=== PATIENT | male | born 1965 | race Caucasian/White ===

== ENCOUNTER 2021-01-17 06:17 | Inpatient (IN) ==
--- NOTE | 2021-01-02 11:53 | PAT Medication Instructions ---
Medication Instructions Date of Service January 02, 2021 Home Medications albuterol sulfate 1 - 2 inh INHALATION QID PRN atorvastatin 20 mg PO PM bumetanide [Bumex] 1 mg PO QAM fluticasone propion-salmeterol 1 inh INHALATION BID losartan 100 mg PO HS metoprolol succinate 25 mg PO BID potassium chloride 20 meq PO QAM tadalafil [Cialis] 20 mg PO DAILY PRN tamsulosin [Flomax] 0.4 mg PO BID temazepam 30 mg PO HS PRN DO NOT take the morning of surgery bumetanide [Bumex] 1 mg PO QAM potassium chloride 20 meq PO QAM tadalafil [Cialis] 20 mg PO DAILY PRN Take morning of surgery With a small sip of water, OTHERWISE NOTHING TO EAT OR DRINK AFTER MIDNIGHT: albuterol sulfate 1 - 2 inh INHALATION QID PRN (use if needed; please bring rescue inhaler with you to hospital day of surgery if possible) fluticasone propion-salmeterol 1 inh INHALATION BID metoprolol succinate 25 mg PO BID tamsulosin [Flomax] 0.4 mg PO BID Take evening before surgery albuterol sulfate 1 - 2 inh INHALATION QID PRN (if needed) atorvastatin 20 mg PO PM fluticasone propion-salmeterol 1 inh INHALATION BID losartan 100 mg PO HS metoprolol succinate 25 mg PO BID tadalafil [Cialis] 20 mg PO DAILY PRN (if needed) tamsulosin [Flomax] 0.4 mg PO BID temazepam 30 mg PO HS PRN (if needed) Other Notes If you have any questions please call us at [phone] or [phone] or [phone] or [phone]
--- NOTE | 2021-01-03 11:25 | Anesthesiology Consultation ---
Date of Service January 03, 2021 Assessment & Plan (1) Encounter for pre-operative examination: COVID screening: Per assessment on 01/03: Travel screen negative, no known COVID- 19 positive contacts or current COVID-19 related symptoms (scheduled 01/10). Surgeon arranging preop COVID testing. Awaiting results. Chart Review Chart Review: Acceptable Risk for Surgery and Patient seen in Pre Admission Testing Teaching & Discussion Pre-Anesthesia Teaching/Discussion Notes: Instructed NPO after midnight before surgery,except medications with 15 cc of water. Medication instructions prov ided according to the PAT guidelines. History Surgery Operation Date: 01/17/21 11:05 Proposed Procedures p C3-C5 Anterior Cervical Discectomy and Fusion, Spinal Cord Monitoring - Gr navi Pacheco DO Height/Weight Height: 6 ft Weight: 109.4 kg Allergies Allergy/AdvReac Type Severity Reaction Status Date / Time morphine AdvReac Intermediate Hypotension Verified 01/03/21 11:24 (? overmedication related) Medications Home Medications Medication Instructions Recorded Confirmed Last Taken albuterol sulfate 1 - 2 inh INHALATION QID PRN 01/02/21 01/02/21 Unknown atorvastatin 20 mg PO PM 01/02/21 01/02/21 Unknown bumetanide [Bumex] 1 mg PO QAM 01/02/21 01/02/21 Unknown fluticasone propion-salmeterol 1 inh INHALATION BID 01/02/21 01/02/21 Unknown losartan 100 mg PO HS 01/02/21 01/02/21 Unknown metoprolol succinate 25 mg PO BID 01/02/21 01/02/21 Unknown potassium chloride 20 meq PO QAM 01/02/21 01/02/21 Unknown tadalafil [Cialis] 20 mg PO DAILY PRN 01/02/21 01/02/21 Unknown tamsulosin [Flomax] 0.4 mg PO BID 01/02/21 01/02/21 Unknown temazepam 30 mg PO HS PRN 01/02/21 01/02/21 Unknown Past Medical History Medical History Arthritis Asthma BPH (benign prostatic hyperplasia) Degenerative disc disease History of diverticulitis Hyperlipidemia Hypertension Spinal stenosis Exercise / Class Metabolic Activity II 4-5 Yardwork/Stairs/Walk up hill Past Family History Family History Other No family history of adverse response to anesthesia Past Surgical History Surgical History Fusion of spine Lumbar x3 History of appendectomy History of colon resection r/t diverticulitis History of colonoscopy History of esophagogastroduodenoscopy (EGD) History of herniorrhaphy Multiple History of tonsillectomy and adenoidectomy History of tooth extraction History of total shoulder replacement R/L S/P total hip resurfacing Left Past Anesthesia History No Hx of Anesthesia Complications and No Family Hx of Anesthesia Complications History of PONV No Hx of PONV and No Hx of Motion Sickness STOP BANG Total 4 Social History Smoking Status: Former smoker tobacco type: cigarettes and smokeless tobacco Do You Dip or Chew Tobacco: Yes (Rare "pouches" > advised none AM DOS) Smoking End Date: Quit 20 years ago Hx Alcohol Use: Yes Alcohol type: beer alcohol intake frequency: a few times a month ("social drinker") Hx Substance Use: No substance use type: does not use Physical Exam Vital Signs VITALS BP 116/74 P 80 TEMP 98.5 SP02 94%RA RESP 18 PHYSICAL Significantly decreased extension range of motion. Full TMJ range of motion. TMD 3.5 finger breaths Mallampati Score 1 Dentition: lower left side missing, one crown Lungs: clear throughout to auscultation Cardiac: regular rate and rhythm, no murmurs noted Spine: normal Carotid arteries: negative bruit Extremities: no edema Testing Laboratory Results 01/03/21 12:02 01/03/21 12:37 PT 10.5 Seconds (9.0-12.0) 01/03/21 12:02 INR 1.0 (0.9-1.1) 01/03/21 12:02 APTT 25.0 Seconds (21.0-31.0) 01/03/21 12:02 Urine Color Yellow 01/03/21 12:37 Urine Appearance Clear (Clear) 01/03/21 12:37 Urine pH 6.0 (4.5-7.5) 01/03/21 12:37 Ur Specific [place] 1.006 (1.000-1.030) 01/03/21 12:37 Urine Protein Negative (Negative) 01/03/21 12:37 Urine Glucose (UA) Negative (Negative) 01/03/21 12:37 Urine Ketones Negative (Negative) 01/03/21 12:37 Urine Nitrite Negative (Negative) 01/03/21 12:37 Ur Leukocyte Esterase Negative (Negative) 01/03/21 12:37 Blood Type O Positive 01/03/21 12:02 Antibody Screen NEGATIVE 01/03/21 12:02 Electrocardiogram Date: 01/03/21 Findings: + NSR @ (78) Chest X-Ray Date: 01/03/21 FINDINGS: Lung volumes are normal. Lungs are clear. There is no pneumothorax or pleural effusion. Cardiac size is normal. Mediastinal contours are normal. There is no evidence for pulmonary edema. Bilateral shoulder arthroplasties are partially imaged. Mild elevation/eventration of the left hemidiaphragm is unchanged. Lumbar spine fusion hardware is partially imaged. IMPRESSION: No acute cardiopulmonary findings.
--- NOTE | 2021-01-03 13:01 | XRay Report ---
XR chest Pre-admission PA/Lat CLINICAL HISTORY: Preoperative evaluation. COMPARISON STUDY: Chest radiograph January 02, 2014. FINDINGS: Lung volumes are normal. Lungs are clear. There is no pneumothorax or pleural effusion. Car diac size is normal. Mediastinal contours are normal. There is no evidence for pulmonary edema. Bilat eral shoulder arthroplasties are partially imaged. Mild elevation/eventration of the left hemidiaphra gm is unchanged. Lumbar spine fusion hardware is partially imaged. IMPRESSION: No acute cardiopulmonary findings. ACT 112: Negative or not required by law. Electronically signed by: Lev Oliva M.D. 01/03/2021 12:59 PM
[2021-01-03 13:05] LABS: Appearance Urine Clear (Clear); Bilirubin Urine Negative (Negative); Blood Urine Negative (Negative); Color Urine Yellow; Glucose Urine UA Negative (Negative); Ketones Urine Negative (Negative); Leukocyte Esterase Urine Negative (Negative); Nitrite Urine Negative (Negative); Protein Urine Negative (Negative); Specific Gravity Urine 1.006 (1.000-1.030); Urobilinogen Urine Negative (Negative)
[2021-01-03 13:05] LABS: Basophils # (auto) 0.03 K/uL (0-0.2); Basophils % (auto) 0.4 %; Eosinophils # (auto) 0.03 K/uL (0-0.5); Eosinophils % (auto) 0.4 %; Hematocrit (blood only) 43.8 % (42-52); Hemoglobin 15.1 g/dL (14.0-18.0); Immature Granulocytes # (auto) 0.01 K/uL (0.00-0.02); Immature Granulocytes % (auto) 0.1 %; Lymphocytes # (auto) 1.84 K/uL (1.2-3.4); Lymphocytes % (auto) 25.2 %; Mean Corpuscular Hemoglobin 29.5 pg (25-34); Mean Corpuscular Hgb Conc 34.5 g/dL (32-36); Mean Corpuscular Volume 85.5 fL (80-100); Mean Platelet Volume 9.7 fL (7.4-10.4); Monocytes # (auto) 0.66 K/uL (0.11-0.59); Neutrophils # (auto) 4.74 K/uL (1.4-6.5); Neutrophils % (auto) 64.9 %; Platelet Count 220 K/uL (130-400); RDW Coefficient of Variation 14.1 % (11.5-14.5); Red Blood Count 5.12 M/uL (4.7-6.1); White Blood Count 7.31 K/uL (4.8-10.8)
[2021-01-03 13:18] LABS: BUN Creatinine Ratio 19.2 (10-20); Calcium 8.8 mg/dl (8.5-10.1); Creatinine Clr Calc Pharmacy 109.8 ml/min; Potassium 3.8 mmol/L (3.5-5.1)
[2021-01-03 13:21] LABS: Prothrombin Time 10.5 Seconds (9.0-12.0)
--- NOTE | 2021-01-03 16:02 | Electrocardiogram Report ---
Test Reason : Blood Pressure : / mmHG Vent. Rate : 078 BPM Atrial Rate : 078 BPM P-R Int : 150 ms QRS Dur : 092 ms QT Int : 354 ms P-R-T Axes : 081 072 073 degrees QTc Int : 403 ms Normal sinus rhythm Normal ECG When compared with ECG of 02-JAN-2014 15:10, No significant change was found Confirmed by Nir Garcia ([id number]) on 01/03/2021 4:01:48 PM Referred By: Kike Pacheco Confirmed By:Nir Garcia
[~2021-01-17 06:17] MED LIST: ACETAMINOPHEN 500 MG TAB PO SCH; CeleBREX 200 MG CAP PO SCH; GABAPENTIN 600 MG DOSE PO SCH; LR 15ML/HR IV SCH; SODIUM CHLORIDE 0.9% 250 ML IV PRN; ceFAZolin 2000MG 2,000 MG/15 ML SYR IV SCH
[2021-01-17] MEDS ORDERED: fentaNYL citrate 100 MCG/2 ML VIAL ONE (06:57)
[2021-01-17] MEDS ORDERED: MIDAZOLAM HCL 1 MG/ML 2ML VIAL ONE (06:57)
[2021-01-17] MEDS ORDERED: BACITRACIN INJ 50,000 UNIT VIAL ONE (07:01)
[2021-01-17] MEDS ORDERED: PROPOFOL IV EMULSION 10 MG/ML 100 ML VIAL IV ONE (07:16)
[2021-01-17] MEDS ORDERED: ONDANSETRON INJ 2 MG/ML 2 ML VIAL IV PRN ×2 (07:31→11:33)
[2021-01-17] MEDS ORDERED: ATROPINE SULFATE 0.1 MG/ML 10ML SYR IV PRN (07:31)
[2021-01-17] MEDS ORDERED: METOCLOPRAMIDE HCL INJ 5 MG/ML 2 ML VIAL IV PRN ×2 (07:31→11:33)
[2021-01-17] MEDS ORDERED: ePHEDrine sulfate 50 MG/ML AMP IV PRN (07:31)
[2021-01-17] MEDS ORDERED: PROMETHAZINE HCL 12.5 MG in SODIUM CHLORIDE 0.9% 50 ML IV PRN ×2 (07:31→11:33)
[2021-01-17] MEDS ORDERED: HYDROmorphone INJ 2 MG/ML SYR/VIAL IV PRN (07:31)
--- NOTE | 2021-01-17 07:32 | History & Physical Bridge Note ---
Date of Service January 17, 2021 History & Physical Bridge Note I have examined the patient, reviewed the History & Physical and in the interval since the performance of the History & Physical I have noted the following changes of clinical significance: no changes noted
--- NOTE | 2021-01-17 07:33 | History & Physical Report ---
Date of Service January 17, 2021 Assessment & Plan (1) Herniation of cervical intervertebral disc with radiculopathy: Admission and Anticipated Discharge Date Admission Date: C3-C5 anterior cervical discectomy and fusion History of Present Illness Chief Complaint: Neck and bilateral arm pain Primary Care Provider: Tyrese Sheth This is a 55-year-old male presents with chronic persistent neck and arm pain after failing extensive course of nonoperative care is here for surgical invention. Allergies Allergy/AdvReac Type Severity Reaction Status Date / Time morphine AdvReac Intermediate Hypotension Verified 01/17/21 06:37 (? overmedication related) Home Medications Medication Instructions Recorded Confirmed Type albuterol sulfate 1 - 2 inh INHALATION QID PRN 01/02/21 01/17/21 History atorvastatin 20 mg PO PM 01/02/21 01/17/21 History bumetanide [Bumex] 1 mg PO QAM 01/02/21 01/17/21 History fluticasone propion-salmeterol 1 inh INHALATION BID 01/02/21 01/17/21 History losartan 100 mg PO HS 01/02/21 01/17/21 History metoprolol succinate 25 mg PO BID 01/02/21 01/17/21 History potassium chloride 20 meq PO QAM 01/02/21 01/17/21 History tadalafil [Cialis] 20 mg PO DAILY PRN 01/02/21 01/17/21 History tamsulosin [Flomax] 0.4 mg PO BID 01/02/21 01/17/21 History temazepam 30 mg PO HS PRN 01/02/21 01/17/21 History Past Med/Surg History Medical History Arthritis Asthma BPH (benign prostatic hyperplasia) Degenerative disc disease History of diverticulitis Hyperlipidemia Hypertension Spinal stenosis Surgical History Fusion of spine Lumbar x3 History of appendectomy History of colon resection r/t diverticulitis History of colonoscopy History of esophagogastroduodenoscopy (EGD) History of herniorrhaphy Multiple History of tonsillectomy and adenoidectomy History of tooth extraction History of total shoulder replacement R/L S/P total hip resurfacing Left Family History Other No family history of adverse response to anesthesia Social History Smoking Status: Former smoker Smoking End Date: Quit 20 years ago; Second Hand Exposure: Yes (IN THE PAST); Do You Dip or Chew Tobacco: Yes (Rare "pouches" > advised none AM DOS); Tobacco Cessation Education Requested by Patient: No Hx Alcohol Use: Yes Alcohol type: beer Hx Substance Use: No Preferred Language: Beninese Data Miner Required: No Beliefs That Will Affect Care: None Current Living Situation: Spouse Feels Safe at Home: Yes Safety Concerns: Feels Safe At This Time Assistive Devices: Glasses Physical Exam Physical Exam: Patient is alert and oriented Heart regular in rhythm Lungs clear to auscultation Results & Data ([facility]) Vital Signs (Past 12 Hours) Vital Signs Temp Pulse Resp BP Pulse Ox 01/17/21 06:35 36.6 C 62 18 112/78 96
[2021-01-17] MEDS ORDERED: HYDROmorphone INJ 2 MG/ML SYR/VIAL ONE (08:08)
[2021-01-17] MEDS ORDERED: FLOSEAL HEMOSTATIC MATRIX 10ML TOP ONE (08:11)
[2021-01-17] MEDS ORDERED: LARYING-O-JET KIT (LTA) ONE (08:15)
[2021-01-17] MEDS ORDERED: GLYCOPYRROLATE 0.2 MG/ML VIAL ONE (08:15)
[2021-01-17] MEDS ORDERED: DEXAMETHASONE SOD INJ 4 MG/ML VIAL ONE (08:15)
[2021-01-17] MEDS ORDERED: NEOSTIGMINE METHYLSULFATE 1 MG/ML 10ML VIAL ONE (08:15)
[2021-01-17] MEDS ORDERED: LIDOCAINE HCL 2% 2 ML VIAL/AMP(20MG/ML) INFIL ONE (08:15)
[2021-01-17] MEDS ORDERED: ROCURONIUM BROMIDE 10 MG/ML 5 ML VIAL IV ONE (08:15)
[2021-01-17] MEDS ORDERED: PROPOFOL IV EMULSION 10 MG/ML 20 ML VIAL IV ONE (08:15)
[2021-01-17] MEDS ORDERED: PHENYLEPHRINE 100MCG/ML 5ML SYR ONE (08:15)
[2021-01-17] MEDS ORDERED: ONDANSETRON INJ 2 MG/ML 2 ML VIAL ONE (08:15)
[2021-01-17] MEDS ORDERED: ePHEDrine sulfate 50 MG/ML SYR ONE (08:15)
--- NOTE | 2021-01-17 09:22 | Operative Report ---
Post Operative Report Pre & Post Diagnosis Operation Date: 01/17/21 07:45 Pre-Op Diagnosis: Spinal Stenosis, Cervical Region Post-Op Diagnosis: Spinal Stenosis, Cervical Region I identified the patient and participated in the time-out.: Yes Procedure Operation Date: 01/17/21 07:45 Actual Procedures #1 anterior cervical discectomy with bilateral foraminotomies C3-4 C4-C5. #2 intracervical arthrodesis see 3 C4 C4-C5. #3 placement 8 mm spiral filled with I factor at C3-C4 and 7 mm Spira filled with I factor at C4-C5. #4 application of ayoub plate and screws from C3-C5. Surgeon Kike Pacheco, [employer] Certified Internetwork Expert Mary Franz Estimated Blood Loss 10 Findings Consistent with Post-Op Diagnosis Specimens None Indications This is a 55-year-old male presents above-mentioned diagnosis after failing since course of nonoperative care is here for surgical invention. Description of Procedure Patient was met with identified informed consent obtained. Patient was then taken to the operative suite underwent a patient placed in spine position [place] table head [place] butcher head. All bony prominences well-padded eyes inspected to ensure no external pressure placed upon the bed at this point the anterior cervical spine was prepped and draped in a sterile fashion. With the assistance of fluoroscopy identified the C4 vertebral body and a transverse incision was placed along the right anterior aspect of the cervical spine overlying this region. Sharp dissection with assistance of bipolar electrocautery performed down to and exposing the anterior cervical spine from C3-C5. Self-retaining retractors placed. Informed complete discectomy of C3-C4 out to the uncovertebral joints bilaterally. This included removal of all posterior annular fibers disc herniation within the canal and bilateral foraminotomies performed. Endplates were then burred to subcortical bleeding bone and an 8 mm spiral cage filled with I factor tapped in position. I did use [place] distracting pins they were removed and I proceeded to the C4-C5 level. Again complete discectomy performed out to the uncovertebral joints bilaterally. [place] distracting pins utilized. Again removed all posterior annular fibers longitudinal ligament bilateral foraminotomies performed. Endplates were then b urred to subcortical being bone and a 7 mm spiral cage filled with I factor tapped in position. Distracting apparatus was removed. All anterior osteophytes burred to a smooth cortical surface and a 5 complete screws applied with the assistance of fluoroscopy. The incision was then copiously irrigated explored to ensure no damage to surrounding structures remaining bleeding. 10 round MARILYNN drain inserted. The incision was then closed with 2 Vicryl in a fashion of 4 Monocryl for final skin closure. Steri-Strip sterile dressings placed. Patient will continue PACU stable condition. Please note spinal cord monitoring was utilized that the procedure no changes noted. Lastly Mary Franz was present at the entire surgeon involved the patient positioning complex portions of the surgery and final skin closure. I attest to the content of the Intraoperative Record and any orders documented therein. Any exceptions are noted below.
[2021-01-17] MEDS: fentaNYL citrate 100 MCG/2 ML VIAL IV PRN ×4 (09:42→09:57)
--- NOTE | 2021-01-17 10:05 | Fluoroscopy Report ---
FL cervical 2-3V CLINICAL HISTORY: ACDF C3-C5 COMPARISON STUDY: None. FLUOROSCOPY TIME: 7 seconds. FINDINGS: 2 fluoroscopic spot images of the cervical spine demonstrate C3-C5 ACDF. The hardware appea rs intact. IMPRESSION: Fluoroscopy provided for C3-C5 ACDF. ACT 112: Negative or not required by law. Electronically signed by: Raghavendra Miranda M.D. 01/17/2021 10:03 AM
[2021-01-17] MEDS ORDERED: traMADol HCL 50 MG TABLET PO PRN (11:33)
[2021-01-17] MEDS ORDERED: ALUMINUM/MAGNESIUM SUSP 30 ML UDC PO PRN (11:33)
[2021-01-17] MEDS ORDERED: TEMAZEPAM 15 MG CAPSULE PO PRN (11:33)
[2021-01-17] MEDS ORDERED: DO NOT ADMINISTER PNEUMOCOCCAL VACCINE PRN (11:33)
[2021-01-17] MEDS ORDERED: hydrOXYzine HCl 25 MG TAB PO PRN (11:33)
[2021-01-17] MEDS ORDERED: SOD PHOSPHATE/SOD BIPHOSPHATE ENEMA 132 ML BTL PR PRN (11:33)
[2021-01-17] MEDS ORDERED: ACETAMINOPHEN 500 MG TAB PO PRN (11:33)
[2021-01-17] MEDS ORDERED: RACEPINEPHRINE 2.25% NEBU SOLN 0.5 ML VIAL INH PRN (11:33)
[2021-01-17] MEDS ORDERED: dexAMETHasone 8 MG in SYRINGE 0 ML IV PRN (11:33)
[2021-01-17] MEDS ORDERED: ACETAMINOPHEN 1,000 MG/100 ML VIAL IV PRN (11:33)
[2021-01-17] MEDS ORDERED: NALOXONE HCL 0.4 MG/1 ML VIAL/CARP IV PRN (11:33)
[2021-01-17] MEDS ORDERED: HYDROmorphone INJ 1 MG/ML SYRINGE IV PRN (11:33)
[2021-01-17] MEDS ORDERED: MAGNESIUM HYDROXIDE SUSP 30 ML UDC PO PRN (11:33)
[2021-01-17] MEDS ORDERED: FAMOTIDINE 20 MG TAB PO PRN (11:33)
[2021-01-17] MEDS ORDERED: HYDROmorphone INJ 0.5 MG/0.5 ML SYR IV PRN (11:33)
[2021-01-17] MEDS ORDERED: DO NOT ADMINISTER FLU VACCINE PRN (11:33)
[2021-01-17] MEDS ORDERED: LORazepam 0.5 MG TAB PO PRN (11:33)
[2021-01-17] MEDS ORDERED: diphenhydrAMINE Capsule 25 MG CAP PO PRN (11:33)
[2021-01-17] MEDS ORDERED: ONDANSETRON 4 MG OD TAB PO PRN (11:33)
[2021-01-17] MEDS ORDERED: LACTATED RINGER'S 1,000 ML IV SCH (11:33)
[2021-01-17] MEDS ORDERED: LORazepam 0.5 MG/1 ML VIAL IV PRN (11:33)
--- NOTE | 2021-01-17 11:42 | Anesthesiology Progress Note ---
Date of Service January 17, 2021 Anesthesia Post Procedure Vital Signs Vital Signs: Temp Pulse Resp BP BP Pulse Ox 01/17/21 11:15 59 L 16 96/61 L 97 01/17/21 11:05 58 L 16 93/59 L 97 01/17/21 10:55 36.5 C 55 L 16 110/64 97 01/17/21 10:45 53 L 16 94/85 L 97 01/17/21 10:35 44 L 16 92/66 L 97 01/17/21 10:24 56 L 16 102/59 L 95 01/17/21 10:15 53 L 16 97/59 L 98 01/17/21 10:05 67 16 104/61 99 01/17/21 09:55 59 L 16 98/60 L 99 01/17/21 09:45 67 16 92/55 L 100 01/17/21 09:35 60 16 98/73 L 100 01/17/21 09:29 36.1 C L 57 L 16 98/61 L 99 01/17/21 06:35 36.6 C 62 18 112/78 96 Pain Intensity Neck: Pain Intensity: 8 Transfer of Care Handoff Completed per policy Notes Mental Status: alert / awake / arousable and participated in evaluation Patient Amnestic to Procedure: Yes Nausea / Vomiting: adequately controlled Pain: adequately controlled Airway Patency, RR, SpO2: stable & adequate BP & HR: stable & adequate Hydration State: stable & adequate Anesthetic Complications: no major complications apparent
[2021-01-17] MEDS: oxyCODONE HCL IR 5 MG TAB (IMMEDIATE RELEASE) PO PRN ×3 (12:12→20:37)
--- NOTE | 2021-01-17 13:55 | Hospitalist Consultation ---
Date of Consultation January 17, 2021 Assessment & Plan (1) Herniation of cervical intervertebral disc with radiculopathy: S/p ACDF of C3-4 & C4-C5 on 01/17/[address] Pacheco. - Post-operative care per primary team - Patient NOT wearing his cervical collar on my interview, but says he was told he can keep it off while resting in bed. - Post-op VTE ppx per primary team (2) Hypertension: BP presently 105/65 after surgery. - Will restart home losartan, metoprolol tomorrow - Will restart home Bumex tomorrow as well. He reports he gets LE edema without it, but does not think he's ever been diagnosed with heart failure. (3) Asthma: No present shortness of breath or cough. - Continue home maintenance inhaler (or hospital formulary equivalent) - DuoNebs PRN (4) Hyperlipidemia: - Continue home atorvastatin (5) BPH (benign prostatic hyperplasia): No LUTS at present. - Continue home tamsulosin BID (6) Insomnia: Takes benzo PRN at home (few times a week per patient). No hx of confusion or other issues at home. However, very sensibly, he does not want to mix opioids and benzos in the hospital. - Hold home temazepam - Melatonin HS PRN (7) DVT prophylaxis: SCDs - Low DVT risk per admission calculator & also holding heparin after spinal surgery History of Present Illness Attending Physician: Kike Pacheco, DO History of Present Illness 55yo M w/ hx of asthma, HTN, and HLD who presents as a routine consult after an ACDF of C3-4 & C4-C5 on 01/17/[address] Pacheco. Patient has had intractable cervical pain and neurologic symptoms from his cervical disease and has failed an extensive course of non-operative treatment. At the present time (after surgery), he is doing well and has minimal pain. He reports he has no shortness of breath at present, has no chest pain, and overall has no major symptoms. He does get swelling in his lower extremities if he does not take his Bumex, but does not know if he's ever been diagnosed with heart failure. Allergies Allergy/AdvReac Type Severity Reaction Status Date / Time morphine AdvReac Intermediate Hypotension Verified 01/17/21 06:37 (? overmedication related) Home Medications Medication Instructions Recorded Confirmed Type albuterol sulfate 1 - 2 inh INHALATION QID PRN 01/02/21 01/17/21 History atorvastatin 20 mg PO PM 01/02/21 01/17/21 History bumetanide [Bumex] 1 mg PO QAM 01/02/21 01/17/21 History fluticasone propion-salmeterol 1 inh INHALATION BID 01/02/21 01/17/21 History losartan 100 mg PO HS 01/02/21 01/17/21 History metoprolol succinate 25 mg PO BID 01/02/21 01/17/21 History potassium chloride 20 meq PO QAM 01/02/21 01/17/21 History tadalafil [Cialis] 20 mg PO DAILY PRN 01/02/21 01/17/21 History tamsulosin [Flomax] 0.4 mg PO BID 01/02/21 01/17/21 History temazepam 30 mg PO HS PRN 01/02/21 01/17/21 History oxycodone 5 mg PO Q6H PRN #20 tab 01/17/21 Rx tramadol 50 mg PO Q6H PRN #20 tab 01/17/21 Rx Patient History Medical History Arthritis Asthma BPH (benign prostatic hyperplasia) Degenerative disc disease History of diverticulitis Hyperlipidemia Hypertension Spinal stenosis Surgical History Fusion of spine Lumbar x3 History of appendectomy History of colon resection r/t diverticulitis History of colonoscopy History of esophagogastroduodenoscopy (EGD) History of herniorrhaphy Multiple History of tonsillectomy and adenoidectomy History of tooth extraction History of total shoulder replacement R/L S/P total hip resurfacing Left Family History Other No family history of adverse response to anesthesia Social History Smoking Status: Former smoker Smoking End Date: Quit 20 years ago; Second Hand Exposure: Yes (IN THE PAST); Do You Dip or Chew Tobacco: Yes (Rare "pouches" > advised none AM DOS); Tobacco Cessation Education Requested by Patient: No Hx Alcohol Use: Yes Alcohol type: beer Hx Substance Use: No Preferred Language: Bol[place]ian Staff Radiologist Required: No Beliefs That Will Affect Care: None Current Living Situation: Spouse Feels Safe at Home: Yes Safety Concerns: Feels Safe At This Time Assistive Devices: Glasses Review of Systems Review of Systems: All systems reviewed & are unremarkable except as noted in HPI & below Physical Exam Constitutional: WD/WN, vitals as above Eyes: EOM intact bilaterally; no conjunctival abnormality ENMT: external ear and nose normal, oropharynx normal Neck: trachea midline, no thyromegaly + abnormal visual inspection (Bandage on left side with surgical drain present with minimal serosanguinou) Respiratory: normal respiratory effort, lungs clear to auscultation no respiratory distress Cardiovascular: RRR, no murmur, no edema Gastrointestinal (Abdomen): Inspection/Auscultation: abdomen normal to inspection; abdomen not distended Musculoskeletal: no cyanosis or clubbing, extremities motor strength 5/5 Skin: no rashes, warm and dry Neurologic: moves all extremities and awake Psychiatric: Orientation: alert, oriented to person and cooperative Results & Data Results & Data ([place]) Vital Signs (Past 12 Hours) Vital Signs Temp Pulse Pulse Resp BP BP Pulse Ox 01/17/21 13:37 36.4 C L 60 16 105/66 97 01/17/21 12:33 36.4 C L 62 16 107/67 97 01/17/21 12:04 36.5 C 59 L 16 112/71 97 01/17/21 12:00 63 16 98 01/17/21 11:30 36.6 C 62 16 110/70 97 01/17/21 11:15 59 L 16 96/61 L 97 01/17/21 11:05 58 L 16 93/59 L 97 01/17/21 10:55 36.5 C 55 L 16 110/64 97 01/17/21 10:45 53 L 16 94/85 L 97 01/17/21 10:35 44 L 16 92/66 L 97 01/17/21 10:24 56 L 16 102/59 L 95 01/17/21 10:15 53 L 16 97/59 L 98 01/17/21 10:05 67 16 104/61 99 01/17/21 09:55 59 L 16 98/60 L 99 01/17/21 09:45 67 16 92/55 L 100 01/17/21 09:35 60 16 98/73 L 100 01/17/21 09:29 36.1 C L 57 L 16 98/61 L 99 01/17/21 06:35 36.6 C 62 18 112/78 96 PG Care Time/CCT Total # of Minutes Spent Total Time Spent with Patient: Total time spent is greater than 50% in coordination of care (as documented) at patient's floor/unit and/or counseling patient: Coding Level of Care Code 78495 Inpt Consult Level 4 Diagnoses Herniation of cervical intervertebral disc with radiculopathy M50.10 Hypertension I10 Asthma J45.909 Hyperlipidemia E78.5 BPH (benign prostatic hyperplasia) N40.0 Insomnia G47.00 DVT prophylaxis Z29.9
[2021-01-17] MEDS ORDERED: MELATONIN 3 MG TAB PO PRN (14:01)
[2021-01-17] MEDS ORDERED: ALBUT/IPRATROP 3MG/0.5MG NEB 3 ML VIAL NEB PRN (14:01)
[2021-01-17] MEDS: ceFAZolin 2000MG 2,000 MG/15 ML SYR IV SCH ×2 (15:44→23:21)
[2021-01-17] MEDS: TAMSULOSIN HCL 0.4 MG CAP PO SCH (20:38)
[2021-01-17] MEDS ORDERED: METOPROLOL SUCC 25MG EXT REL TAB PO SCH (21:00)
[2021-01-17] MEDS ORDERED: ATORVASTATIN 20 MG TAB PO SCH (21:00)
[2021-01-17] MEDS ORDERED: LOSARTAN POTASSIUM 50 MG TAB PO SCH (21:00)
[2021-01-17] MEDS ORDERED: DOCUSATE SODIUM/SENNA 50/8.6MG TAB PO SCH (21:00)
[2021-01-18] MEDS: oxyCODONE HCL IR 5 MG TAB (IMMEDIATE RELEASE) PO PRN ×3 (01:57→10:09)
[2021-01-18] MEDS: POLYETHYLENE (MIRALAX) 17 GM PACK PO SCH ×2 (05:30→11:33)
--- NOTE | 2021-01-18 08:08 | Hospitalist Progress Note ---
Date of Service January 18, 2021 Assessment & Plan (1) Herniation of cervical intervertebral disc with radiculopathy: * S/P ACDF of C3-4 & C4-C5 with Dr. Pacheco on 01/17/21. Pre-op h/h 15.1/43.8. * EBL 10cc * Post-operative care per primary team - Patient NOT wearing his cervical collar on my interview, but says he was told he can keep it off while resting in bed. - Post-op VTE ppx per primary team (2) Hypertension: BP presently 111/66 this morning Resumed metoprolol XL BID (XL BID?) and bumex however BP still low 111/66 and will hold until AM labs back and ensure kidney function stable Could resume bumex later for edema if BP allows and Cr stable but anticipate holding metoprolol until this evening Losartan ordered to resume this evening as well w - Will restart home Bumex tomorrow as well. He reports he gets LE edema without it, but does not think he's ever been diagnosed with heart failure. (3) Asthma: No present shortness of breath or cough. - Continue home maintenance inhaler (or hospital formulary equivalent) - DuoNebs PRN 96% on RA (4) Hyperlipidemia: - Continue home atorvastatin (5) BPH (benign prostatic hyperplasia): No LUTS at present. - Continue home tamsulosin BID (6) Insomnia: Takes benzo PRN at home (few times a week per patient). No hx of confusion or other issues at home. However, very sensibly, he does not want to mix opioids and benzos in the hospital. - Hold home temazepam - Melatonin HS PRN (7) DVT prophylaxis: SCDs - Low DVT risk per admission calculator & also holding heparin after spinal surgery Admission and Anticipated Discharge Date Admission Date: January 17, 2021 Results & Data Results & Data ([facility]) Vital Signs (Past 12 Hours) Vital Signs Temp Pulse Resp BP BP Pulse Ox 01/18/21 07:36 36.4 C L 60 16 111/66 96 01/18/21 07:32 57 L 20 96 01/18/21 05:30 36.6 C 54 L 18 107/66 97 01/18/21 03:30 36.5 C 58 L 18 115/65 97 01/18/21 03:05 44 L 16 97 01/18/21 01:30 36.5 C 49 L 18 114/67 97 01/17/21 23:30 36.7 C 46 L 18 108/64 98 01/17/21 22:16 46 L 14 95 01/17/21 21:30 36.4 C L 49 L 18 124/73 98 PG Care Time/CCT Total # of Minutes Spent Total Time Spent with Patient: Total time spent is greater than 50% in coordination of care (as documented) at patient's floor/unit and/or counseling patient: Coding Diagnoses Herniation of cervical intervertebral disc with radiculopathy M50.10 Hypertension I10 Asthma J45.909 Hyperlipidemia E78.5 BPH (benign prostatic hyperplasia) N40.0 Insomnia G47.00 DVT prophylaxis Z29.9
[2021-01-18] MEDS: TAMSULOSIN HCL 0.4 MG CAP PO SCH (08:34)
[2021-01-18] MEDS ORDERED: FLUTICASONE/VILANTEROL 200/25MCG 14 PUFFS/INHALER INH SCH (09:00)
[2021-01-18] MEDS ORDERED: BUMETANIDE 1 MG TAB PO SCH (09:00)
[2021-01-18] MEDS ORDERED: POTASSIUM CHLORIDE PWD 20 MEQ PACK PO SCH (09:00)
[2021-01-18] MEDS ORDERED: METOPROLOL SUCC 25MG EXT REL TAB PO SCH (09:00)
--- NOTE | 2021-01-18 09:14 | Discharge Summary ---
Date of Service January 18, 2021 Admission HPI Per Admitting Provider This is a 55-year-old male presents with chronic persistent neck and arm pain after failing extensive course of nonoperative care is here for surgical invention. Principal Diagnosis Cervical disc herniation with radiculopathy Discharge Data Allergies Allergy/AdvReac Type Severity Reaction Status Date / Time morphine AdvReac Intermediate Hypotension Verified 01/17/21 06:37 (? overmedication related) Consultations 01/17/21 11:33 Consult Hospitalist Routine Procedures Performed Operation Date: 01/17/21 07:45 Actual Procedures p C3-C5 Anterior Cervical Discectomy and Fusion, Spinal Cord Monitoring(Not Applicable) - Kike Pacheco DO Ordered Studies 01/17/21 07:45 FL cervical 2-3V Routine Hospital Course (1) Herniation of cervical intervertebral disc with radiculopathy: Patient underwent anterior cervical discectomy and fusion tolerates well second orthopedic for postoperative. Postop day 1 he swallowing well no hoarseness arm symptoms markedly improved. Pain well controlled. MARILYNN drain decreasing probably. Subsequent discharge home. Discharge orders instructions from the chart for further review. Total Time Total Time Spent Total Time Spent (In Minutes): 20 minutes Discharge Plan Discharge Items Patient Disposition: Home - Self-Care Reason For Visit: Spinal Stenosis, Cervical Region Discharge Diagnosis: Cervical disc condition with radiculopathy Activity: As commented below Non-emergency contact: Primary Care Provider Call non-emergency contact if: you have any medication questions Follow-up/Referrals: Tyrese Sheth [Primary Care Provider] - Diet: Regular Addtl Attending Provider Instructions: ACTIVITY RECOMMENDATIONS: SELF CARE INSTRUCTIONS AFTER CERVICAL FUSIONS 1. No smoking. Smoking drastically decreases the chance of a solid fusion. 2. No bending, lifting more than 5 pounds, or twisting (roll like a log when turning in bed). 3. You may shower 3 days after surgery. Thoroughly dry wound. Do not soak in the tub. 4. Cervical collar: Must be worn at all times including sleeping. You may remove the brace only to bath, eat and if you are sitting in a recliner. 5. Please walk as much as you can for exercise. Gradually increase the distance that you walk as your endurance increases. SPECIAL CARE INSTRUCTIONS: VERY IMPORTANT TO READ AND REVIEW A. Do not take any anti-inflammatory medications (i.e. Indocin, Advil, Aspirin, Naprosyn, Aleve, Motrin, etc.) as these may inhibit the chance of a solid fusion. Tylenol is okay to take. B. Your surgical incision has been closed with a cosmetic suture under the skin that will dissolve in about 6 weeks. In 14 days, you can use a pair of clean scissors and cut the suture that is left outside of the skin at the ends of your incision. C. Complications are uncommon, but please contact us if you have any signs or symptoms of: 1. wound infection (fever higher than 102.5 degrees F, redness, separation of wound, drainage, or increasing pain from the incision) 2. blood clots in legs (pain, swelling, redness and warmth in legs) 3. urinary tract infection (fever higher than 102.5 degrees, burning upon urination or increased frequency of urination) 4. nerve problems (inability to walk on your toes or heels, numbness, loss of bowel or bladder control) 5. any other symptoms that concern you. D. Please call the office at if you have any concerns or questions about your operation or recovery. MANAGING PAIN AFTER SPINAL SURGERY 1. Narcotic medication is intended for short-term use and will be provided for surgical pain. Surgical pain usually lasts for a period of 4-6 weeks. Narcotic medication includes Percocet, Vicodin, Darvocet, Tylenol #3 or Lortab. 2. Longer-term pain is more appropriately treated with non-narcotic medication such as Tylenol ES. 3. Muscle spasm is not appropriately treated with narcotics. Muscle relaxers such as Soma, Flexeril or Skelaxin can be used along with Tylenol ES. 4. Remember that we all live with some "aches and pains". This is not unusual or uncommon after an injury or as we get older. 5. We will provide appropriate medication within the normal guidelines of their prescribed use. We will also be very cautious and aware of potential abuse and extended duration of patients' medication needs. 6. Please allow 2-3 days to process refills. Prescriptions will not be mailed but must be picked up at the office. FOLLOW UP VISIT: Keep your scheduled follow-up appointment. Any questions, please call the office at . Pending Studies at Discharge: No Stand-Alone Forms: My [facility], Smoking Cessation Medications and DC Order Prescriptions: New tramadol 50 mg tablet 50 mg PO Q6H PRN (Reason: pain, moderate) Qty: 20 RF: 0 oxycodone 5 mg tablet 5 mg PO Q6H PRN (Reason: pain, severe) Qty: 20 RF: 0 Continued atorvastatin 20 mg Tablet 20 mg PO PM RF: 0 potassium chloride 20 mEq Packet 20 meq PO QAM RF: 0 tamsulosin [Flomax] 0.4 mg Capsule 0.4 mg PO BID RF: 0 temazepam 30 mg Capsule 30 mg PO HS PRN (Reason: Sleep) RF: 0 bumetanide 1 mg Tablet 1 mg PO QAM RF: 0 metoprolol succinate 25 mg Tablet Extended Release 24 Hr 25 mg PO BID RF: 0 losartan 100 mg Tablet 100 mg PO HS RF: 0 tadalafil [Cialis] 20 mg Tablet 20 mg PO DAILY PRN (Reason: NEEDED) RF: 0 albuterol sulfate 90 mcg/actuation Hfa Aerosol Inhaler 1 - 2 inh INHALATION QID PRN (Reason: SHORT OF BREATH) RF: 0 fluticasone propion-salmeterol 232-14 mcg/actuation Aero Powdr Breath Act W/Sensor 1 inh INHALATION BID RF: 0 Discharge Orders: Discharge Order (Routine); Ordered 01/18/21 Ordered By: Kike Pacheco Admission Data Admit Date/Time: 01/17/21 09:53 Attending Provider: Kike Pacheco Admit Provider: Kike Pacheco Primary Care Provider: Tyrese Sheth Other Providers: Dimple Grijalva
[2021-01-18 09:48] LABS: Hemoglobin 13.5 g/dL (14.0-18.0); Mean Corpuscular Hemoglobin 29.8 pg (25-34); Mean Corpuscular Hgb Conc 33.8 g/dL (32-36); Mean Corpuscular Volume 88.3 fL (80-100); Mean Platelet Volume 9.4 fL (7.4-10.4); Platelet Count 186 K/uL (130-400); RDW Coefficient of Variation 14.6 % (11.5-14.5); RDW Standard Deviation 47.4 fL (36.4-46.3); Red Blood Count 4.53 M/uL (4.7-6.1); White Blood Count 9.69 K/uL (4.8-10.8)
[2021-01-18 10:20] LABS: Albumin Level 3.1 gm/dl (3.4-5.0); BUN Creatinine Ratio 12.2 (10-20); Calcium 8.9 mg/dl (8.5-10.1); Creatinine Clr Calc Pharmacy 95.8 ml/min; Est GFR (African American) 86.5; Est GFR (Non-African American) 74.6; Potassium 3.9 mmol/L (3.5-5.1)
--- NOTE | 2021-01-18 10:20 | Communication Note ---
Date of Service: January 18, 2021 D/c planned this morning by primary service.
[2021-01-18 10:23] LABS: Bilirubin,Total 0.8 mg/dl (0.2-1); Globulin 3.1 gm/dl (2.5-4.0); Total Protein 6.2 gm/dl (6.4-8.2)
[2021-01-18] MEDS ORDERED: LOSARTAN POTASSIUM 50 MG TAB PO SCH (21:00)
[2021-01-19] MEDS ORDERED: bisacodyL 10 MG SUPP PR PRN (09:24)
== END 2021-01-18 12:30 | disposition home or self-care (01) | DRG 473 ==
LOC: PAT 06:17 → 3E 09:53